=== PATIENT | male | born 1975 | race Caucasian/White ===

== ENCOUNTER 2017-08-27 19:01 | Emergency (ER) | payer SELFPAY ==
[~2017-08-27] VITALS: Ht 193 cm; Wt 100.0 kg
[2017-08-27 19:09] VITALS: Ht 193 cm; Wt 100.0 kg
[2017-08-27] MEDS ORDERED: HYDROCODONE/APAP (10/325) TAB PO ONE (20:00)
[2017-08-27] MEDS ORDERED: IBUPROFEN 600 MG TAB PO ONE (20:00)
--- NOTE | 2017-08-27 20:17 | ERD ---
ER Documentation Chief Complaint Chief Complaint pain/swelling left ankle, fell from ladder x 1 hour ago HPI 39-year-old male comes in with left foot, left ankle pain after falling off a short step stool about an hour ago, the patient works at the [employer]. He describes diffuse, sharp pain that is severe, worse with weightbearing better with elevation, and is on the left foot going to the left ankle as well. ROS All systems reviewed and are negative except as per history of present illness. Medications Home Meds Active Scripts Ibuprofen* (Motrin*) 600 Mg Tab, 600 MG PO Q6, #30 TAB Prov:ZARA YAN PA-C 08/27/17 Hydrocodone/Acetaminophen (Blanco 5-325 Tablet) 1 Each Tablet, 1 TAB PO Q6H Y for PAIN, #7 TAB Prov:ZARA YAN PA-C 08/27/17 Allergies Allergies: Coded Allergies: No Known Drug Allergies (Verified Allergy, Unknown, 08/27/17) PMhx/Soc Medical and Surgical Hx: pt denies Medical Hx History of Surgery: Yes (lumbar fusion x3) Anesthesia Reaction: No Hx Alcohol Use: No Hx Substance Use: No Hx Tobacco Use: No Smoking Status: Never smoker Physical Exam Vitals Vital Signs Date Time Temp Pulse Resp B/P Pulse Ox O2 Delivery O2 Flow Rate FiO2 08/27/17 19:09 98.0 99 20 141/93 98 Physical Exam General: Well-developed, well-nourished. The patient appears in no acute distress. HEENT: Head is normocephalic, atraumatic. No scleral icterus. Neck: Supple. Nontender. Lungs: Clear to auscultation. Normal air movement. Heart: Regular rate and rhythm. S1 and S2 are normal. No murmurs, gallops, or rubs. Abdomen: Distended Extremities: Left lateral malleolus is significant soft tissue swelling, there is tenderness over the dorsum of the foot. Patient is limited range of motion with flexion and dorsiflexion due to pain. Dorsalis pedis pulse 2+ bilaterally , compartments are soft. The tibia, knee are unremarkable. Neurologic: Alert and oriented 3. No focal deficits. Skin: Normal turgor. No rash or lesions. Results 24 hrs Current Medications Medications (Trade) Dose Ordered Sig/Cindy Route PRN Reason Start Time Stop Time Status Last Admin Dose Admin Acetaminophen/ Hydrocodone Bitart (Blanco (325)) 1 tab ONCE ONCE PO 08/27/17 20:00 08/27/17 20:01 DC 08/27/17 19:57 Ibuprofen (Motrin) 600 mg ONCE ONCE PO 08/27/17 20:00 08/27/17 20:01 DC 08/27/17 19:57 DIAGNOSTIC IMAGING REPORT Patient: TINO SMALLS : 1975 Age: 42 Sex: M MR #: [id number] DOS: 08/27/172024 Ordering MD: ZARA YAN PA-C Location: [facility] Room/Bed: PROCEDURE: XR left foot. CLINICAL INDICATION: Trauma. Left foot pain. TECHNIQUE: 3 views. Frontal, lateral, and oblique. COMPARISON: None. FINDINGS: There is no fracture or dislocation. The soft tissues are normal. Articular surfaces are intact. There is no lytic or blastic lesion. There is no radiopaque foreign body. IMPRESSION: 1. Normal images of the left foot. RPTAT: QQ .Sharif Banerjee MD, MD Date Time Electronically viewed and signed by .Sharif Banerjee MD, MD on 08/27/2017 20:57 .R/ CC: ZARA YAN PA-C DIAGNOSTIC IMAGING REPORT Patient: TINO SMALLS : 1975 Age: 42 Sex: M MR #: [id number] DOS: 08/27/172024 Ordering MD: ZARA YAN PA-C Location: [facility] Room/Bed: PROCEDURE: XR Left Ankle. CLINICAL INDICATION: Trauma. Left ankle pain. TECHNIQUE: 3 views. Frontal, lateral, and oblique. COMPARISON: None. FINDINGS: There is no fracture or dislocation. There is lateral soft tissue swelling. Articular surfaces are intact. There is no lytic or blastic lesion. There is no radiopaque foreign body. IMPRESSION: 1. Lateral soft tissue swelling. 2. Otherwise unremarkable images of the left ankle. RPTAT: QQ .Sharif Banerjee MD, MD Date Time Electronically viewed and signed by .Sharif Banerjee MD, on 08/27/2017 21:06 .R/ CC: ZARA YAN PA-C Procedures/MDM Course: The patient was given Blanco as well as ibuprofen for pain. Patient's left ankle was placed in a air stirrup, given crutches. Splint Assessment: Neurovascularly intact post splint placement with good fit. Medical decision makin-year-old male comes in with an inversion injury, after falling off a step stool and is complaining of left foot and left ankle pain, presents with left ankle sprain and left foot sprain. There is no evidence of an acute fracture. Patient's pain significantly improved with Blanco and ibuprofen, he was able to flex and extend the ankle. The patient will be advised to rest, ice and elevate the area. Departure Diagnosis: Primary Impression: Ankle injury Condition: Good ZARA YAN PA-C Aug 27, 2017 20:17
--- NOTE | 2017-08-27 20:57 | RADRPT ---
PROCEDURE: XR left foot. CLINICAL INDICATION: Trauma. Left foot pain. TECHNIQUE: 3 views. Frontal, lateral, and oblique. COMPARISON: None. FINDINGS: There is no fracture or dislocation. The soft tissues are normal. Articular surfaces are intact. There is no lytic or blastic lesion. There is no radiopaque foreign body. IMPRESSION: 1. Normal images of the left foot. RPTAT: QQ .Sharif Banerjee MD, MD Date Time Electronically viewed and signed by .Sharif Banerjee MD, on 08/27/2017 20:57 .R/
--- NOTE | 2017-08-27 21:06 | RADRPT ---
PROCEDURE: XR Left Ankle. CLINICAL INDICATION: Trauma. Left ankle pain. TECHNIQUE: 3 views. Frontal, lateral, and oblique. COMPARISON: None. FINDINGS: There is no fracture or dislocation. There is lateral soft tissue swelling. Articular surfaces are intact. There is no lytic or blastic lesion. There is no radiopaque foreign body. IMPRESSION: 1. Lateral soft tissue swelling. 2. Otherwise unremarkable images of the left ankle. RPTAT: QQ .Sharif Banerjee MD, MD Date Time Electronically viewed and signed by .Sharif Banerjee MD, MD on 08/27/2017 21:06 .R/
[2017-08-27] MEDS ORDERED: HYDR-906 PO (21:19)
[2017-08-27] MEDS ORDERED: IBUP-1542 PO (21:19)
== END 2017-08-27 21:51 | disposition home or self-care (01) ==
LOC: FTE 19:01
DX: S99.912A Unspecified injury of left ankle, initial encounter (principal); W11.XXXA Fall on and from ladder, initial encounter; Y92.9 Unspecified place or not applicable
CPT/HCPCS: 73610